=== PATIENT | female | born 1975 | race Caucasian/White ===

== ENCOUNTER 2016-03-19 16:39 | Emergency (ER) | payer MEDICAID ==
[~2016-03-19] VITALS: Ht 154.9 cm; Wt 77.5 kg
[2016-03-19 17:03] VITALS: Ht 154.9 cm; Wt 77.5 kg
[2016-03-19 20:12] LABS: ADD UMIC YES; URINE BILIRUBIN (Dip) NEGATIVE (NEGATIVE); URINE BLOOD (Dip) 3+ (NEGATIVE); URINE COLOR RED (YELLOW); URINE GLUCOSE (Dip) NEGATIVE (NEGATIVE); URINE KETONES (Dip) NEGATIVE (NEGATIVE); URINE LEUKOCYTE ESTERASE (Dip) TRACE (NEGATIVE); URINE NITRITE (Dip) NEGATIVE (NEGATIVE); URINE TOTAL PROTEIN (Dip) 1+ (NEGATIVE); URINE UROBILINOGEN (Dip) 0.2 E.U./dL (0.1-1.0)
[2016-03-19 20:14] LABS: BASOPHILS % 0.4 % (0.0-2.0); EOSINOPHILS # 0.4 10^3/ul (0.0-0.5); EOSINOPHILS % 3.7 % (0.0-7.0); HEMOGLOBIN 8.9 g/dl (12.0-16.0); LYMPHOCYTES # 3.8 10^3/ul (0.8-2.9); LYMPHOCYTES % 35.6 % (15.0-51.0); MEAN CORPUSCULAR HEMOGLOBIN 23.4 pg (29.0-33.0); MEAN CORPUSCULAR HGB CONC 31.9 g/dl (32.0-37.0); MEAN CORPUSCULAR VOLUME 73.5 fl (82.0-101.0); MEAN PLATELET VOLUME 7.4 fl (7.4-10.4); MONOCYTE # 0.6 10^3/ul (0.3-0.9); MONOCYTES % 5.6 % (0.0-11.0); NEUTROPHIL # 5.8 10^3/ul (1.6-7.5); NEUTROPHILS % 54.7 % (39.0-77.0); PLATELET COUNT 395 10^3/UL (140-440); RED BLOOD COUNT 3.81 10^6/ul (4.20-5.40); RED CELL DISTRIBUTION WIDTH 18.7 % (11.5-14.5); UNCORRECTED WBC 10.7 10^3/ul (4.8-10.8); WHITE BLOOD COUNT 10.7 10^3/ul (4.8-10.8)
[2016-03-19 20:18] LABS: CONDITION 1; LH ANALYZER COMMENTS 1
[2016-03-19 20:25] LABS: CREATININE 0.75 mg/dl (0.44-1.00)
[2016-03-19 20:26] LABS: CALCIUM 9.2 mg/dl (8.4-10.2)
[2016-03-19 21:25] LABS: URINE RBCS >200 /HPF (0)
[2016-03-19 21:28] LABS: BACTERIA,URINE MODERATE; MUCUS,URINE MODERATE
[2016-03-19 21:29] LABS: SQUAMOUS EPITHELIAL CELL,UR FEW
--- NOTE | 2016-03-19 22:23 | RADRPT ---
PROCEDURE: US Pelvis. CLINICAL INDICATION: Vaginal hemorrhage. TECHNIQUE: Multiple sonographic images of the pelvis were obtained utilizing a transabdominal and endovaginal technique. The images were reviewed on a PACS workstation. COMPARISON: None. FINDINGS: The uterus is visualized and measures 104 x 98 x 72 mm. Small posterior uterine fibroid measures 15 mm. The endometrial echo complex is normal and measures 20 mm. Nabothian cysts at the cervix. There is no evidence for free fluid. The right ovary has a 4 cm cyst . Otherwise, the right ovary has a normal echotexture and measures 45 x 40 x 36 mm . The left ovar y has a normal echotexture and measures 24 x 15 x 21 mm. No flow detected in the left ovary, perhaps secondary to small size. No adnexal masses are noted. IMPRESSION: 1. Thickened endometrium, and consider tissue diagnosis. 2. 4 cm right ovarian cyst. 3. No evident ovarian torsion on the right. 4. Small left ovary, without identified blood flow, otherwise nonspecific. RPTAT: UU Physician Yovani Date Time Electronically viewed and signed by Physician Yovani on 03/19/2016 22:23 RS/
--- NOTE | 2016-03-19 22:29 | ERD ---
ER Documentation Chief Complaint Date/Time DATE: 03/19/16 TIME: 22:28 Chief Complaint VAGINAL BLEEDING WITH CLOTS ROS All systems reviewed and are negative except as per history of present illness. Allergies Allergies: Coded Allergies: No Known Drug Allergy (Verified Allergy, Mild, 03/19/16) PMhx/Soc History of Surgery: No Hx Neurological Disorder: No Hx Respiratory Disorders: No Hx Cardiac Disorders: No Hx Psychiatric Problems: No Hx Miscellaneous Medical Probl: No Hx Alcohol Use: No Hx Substance Use: No Hx Tobacco Use: No Smoking Status: Unknown if ever smoked Physical Exam Vitals Vital Signs Date Time Temp Pulse Resp B/P Pulse Ox O2 Delivery O2 Flow Rate FiO2 03/19/16 17:03 98.1 92 19 128/73 100 Physical Exam Const: [] Head: Atraumatic Eyes: Normal Conjunctiva ENT: Normal External Ears, Nose and Mouth. Neck: Full range of motion..~ No meningismus. Resp: Clear to auscultation bilaterally Cardio: Regular rate and rhythm, no murmurs Abd: Soft, non tender, non distended. Normal bowel sounds Skin: No petechiae or rashes Back: No midline or flank tenderness Ext: No cyanosis, or edema Neur: Awake and alert Psych: Normal Mood and Affect Result Diagram: 03/19/16194303/19/161943 Results 24 hrs Laboratory Tests Test 03/19/16 19:44 Anion Gap 14 Basophils # 0.010^3/ul Basophils % 0.4% Blood Morphology Comment Blood Urea Nitrogen 7mg/dl Calcium Level 9.2mg/dl Carbon Dioxide Level 28mmol/L Chloride Level 104mmol/L Creatinine 0.75mg/dl Eosinophils # 0.410^3/ul Eosinophils % 3.7% Glucose Level 91mg/dl Hematocrit 28.0% Hemoglobin 8.9g/dl Lymphocytes # 3.810^3/ul Lymphocytes % 35.6% Mean Corpuscular Hemoglobin 23.4pg Mean Corpuscular Hemoglobin Concent 31.9g/dl Mean Corpuscular Volume 73.5fl Mean Platelet Volume 7.4fl Monocytes # 0.610^3/ul Monocytes % 5.6% Neutrophils # 5.810^3/ul Neutrophils % 54.7% Nucleated Red Blood Cells # 0.010^3/ul Nucleated Red Blood Cells % 0.0/100WBC Platelet Count 45358^3/UL Potassium Level 4.0mmol/L Red Blood Count 3.8110^6/ul Red Cell Distribution Width 18.7% Sodium Level 142mmol/L Urine Bacteria MODERATE Urine Bilirubin NEGATIVE Urine Clarity CLEAR Urine Color RED Urine Glucose NEGATIVE% Urine Hemoglobin 3+ Urine Ketones NEGATIVE Urine Leukocyte Esterase TRACE Urine Microscopic RBC >200/HPF Urine Microscopic WBC 10-25/HPF Urine Mucus MODERATE Urine Nitrite NEGATIVE Urine Specific [place] >=1.030 Urine Squamous Epithelial Cells FEW Urine Total Protein 1+ Urine Urobilinogen 0.2 E.U./dL Urine pH 5.5 White Blood Count 10.710^3/ul Departure Diagnosis: Primary Impression: Vaginal bleeding Additional Impression: Iron deficiency anemia Condition: Stable ALBINO MAZARIEGOS PA-C Mar 19, 2016 22:29
[2016-03-19] MEDS ORDERED: FER325 PO (23:15)
[2016-03-19] MEDS ORDERED: DOCU-144 PO (23:16)
[2016-03-19 23:58] VITALS: PULSE 72; RESP 18; TEMP 98.4
== END 2016-03-19 23:52 | disposition home or self-care (01) ==
LOC: FTE 16:39
DX: N93.9 Abnormal uterine and vaginal bleeding, unspecified (principal); D50.9 Iron deficiency anemia, unspecified
CPT/HCPCS: 36415; 76830; 76856; 80048; 81001; 85025; Z7502; 81003

== ENCOUNTER 2016-04-04 19:43 | Emergency (ER) | payer MEDICAID ==
[~2016-04-04] VITALS: Ht 152.4 cm; Wt 78.0 kg
[~2016-04-04 19:43] MED LIST: DOCU-144 PO; FER325 PO
[2016-04-04 20:55] VITALS: Ht 152.4 cm; Wt 78.0 kg
[2016-04-04] MEDS ORDERED: SOD CHLORIDE 0.9% 1,000 ML IV STA (21:49)
--- NOTE | 2016-04-04 21:52 | ERD ---
ER Documentation Chief Complaint Date/Time DATE: 04/04/16 TIME: 21:51 Chief Complaint vaginal bleeding x 3 months, pelvic pain with nausea (AGUSTÍN LOPEZ NP) HPI 41-year-old female presents to emergency department for complaints of pelvic pain and vaginal bleeding for 3 months now. 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 Patient is complaining of pelvic pain, cramping pain, 4/10 scale, accompanying the other symptoms. Patient's pain is the same as last time. Denies any new type of pain. She denies hematuria or dysuria. Patient is complaining of nausea but denies any vomiting. She denies any dizziness. On and off palpitations. (AGUSTÍN LOPEZ NP) ROS All systems reviewed and are negative except as per history of present illness. (AGUSTÍN LOPEZ NP) Medications Home Meds Active Scripts Ferrous Sulfate* (Ferrous Sulfate*) 325 Mg Tabec, 325 MG PO TID, #60 TAB Prov:ALBINO MAZARIEGOS PA-C 03/19/16 Discontinued Scripts Docusate Sodium* (Colace*) 100 Mg Capsule, 100 MG PO qday, #30 CAP Prov:ALBINO MAZARIEGOS PA-C 03/19/16 Allergies Allergies: Coded Allergies: No Known Drug Allergy (Verified Allergy, Mild, 03/19/16) PMhx/Soc Medical and Surgical Hx: pt denies Medical Hx, pt denies Surgical Hx History of Surgery: No Hx Neurological Disorder: No Hx Respiratory Disorders: No Hx Cardiac Disorders: No Hx Psychiatric Problems: No Hx Miscellaneous Medical Probl: No Hx Alcohol Use: No Hx Substance Use: No Hx Tobacco Use: No (AGUSTÍN LOPEZ NP) FmHx Family History: No coronary disease, No diabetes, No other (AGUSTÍN LOPEZ NP) Physical Exam Vitals Vital Signs Date Time Temp Pulse Resp B/P Pulse Ox O2 Delivery O2 Flow Rate FiO2 04/05/16 10:30 86 18 115/63 100 Room Air 04/05/16 08:30 98.1 77 18 113/74 100 Room Air 04/05/16 06:30 87 18 103/72 99 Room Air 04/05/16 06:00 98.1 74 16 104/62 100 Room Air 04/05/16 04:00 98.4 81 14 106/64 99 Room Air 04/05/16 00:25 89 16 112/69 99 Room Air 04/04/16 20:55 98.3 110 20 132/71 100 (FARHAN WATSON DO) Physical Exam GENERAL: The patient is well developed and appropriate for usual state of health, in no apparent distress. Pale appearing. CHEST: Clear to auscultation bilaterally. There are no rales, wheezes or rhonchi. HEART: Regular rate and rhythm. No murmurs, clicks, rubs or gallops. No S3 or S4. ABDOMEN: Soft, nontender and nondistended. Good bowel sounds. No rebound or guarding. No gross peritonitis. No gross organomegaly or masses. No Rodriguez sign or McBurney point tenderness. BACK: No midline or flank tenderness. EXTREMITIES: Equal pulses bilaterally. There is no peripheral clubbing, cyanosis or edema. No focal swelling or erythema. Full range of motion. Grossly neurovascularly intact. NEURO: Alert and oriented. Cranial nerves 2-12 intact. Motor strength in all 4 extremities with 5/5 strength. Sensation grossly intact. Normal speech and gait. SKIN: There is no apparent rash or petechia. The skin is warm and dry. HEMATOLOGIC AND LYMPHATIC: There is no evidence of excessive bruising or lymphedema. No gross cervical, axillary, or inguinal lymphadenopathy. (AGUSTÍN LOPEZ NP) Result Diagram: 04/04/162223 Results 24 hrs Laboratory Tests Test 04/04/16 21:55 04/04/16 22:24 Urine Bacteria FEW Urine Bilirubin NEGATIVE Urine Clarity TURBID Urine Color RED Urine Epithelial Cells FEW Urine Glucose NEGATIVE% Urine Hemoglobin 3+ Urine Ketones NEGATIVE Urine Leukocyte Esterase NEGATIVE Urine Microscopic RBC >200/HPF Urine Microscopic WBC 2-5/HPF Urine Nitrite NEGATIVE Urine Specific [place] 1.020 Urine Total Protein 2+ Urine Urobilinogen 0.2 E.U./dL Urine pH 6.5 Basophils # 0.010^3/ul Basophils % 0.5% Beta HCG, Quantitative < 2.4mIU/ml Blood Morphology Comment Eosinophils # 0.310^3/ul Eosinophils % 4.5% Hematocrit 21.4% Hemoglobin 6.9g/dl Lymphocytes # 3.010^3/ul Lymphocytes % 41.9% Mean Corpuscular Hemoglobin 27.0pg Mean Corpuscular Hemoglobin Concent 32.1g/dl Mean Corpuscular Volume 84.0fl Mean Platelet Volume 7.7fl Monocytes # 0.610^3/ul Monocytes % 8.1% Neutrophils # 3.310^3/ul Neutrophils % 45.0% Nucleated Red Blood Cells # 0.010^3/ul Nucleated Red Blood Cells % 0.0/100WBC Platelet Count 46896^3/UL Red Blood Count 2.5510^6/ul Red Cell Distribution Width 28.6% White Blood Count 7.310^3/ul Current Medications Medications (Trade) Dose Ordered Sig/Felipe Route PRN Reason Start Time Stop Time Status Last Admin Dose Admin Sodium Chloride (NS) 1,000 ml @ 1,000 mls/hr Q1H STAT IV 04/04/16 21:49 04/04/16 22:48 DC 04/04/16 22:20 Medroxyprogesterone Acetate (Depo-Provera) 150 mg ONCE ONCE IM 04/05/16 08:30 04/05/16 08:31 DC Estrogens Conjugated (Premarin) 25 mg ONCE ONCE IM 04/05/16 08:30 04/05/16 08:31 DC 04/05/16 09:35 Medroxyprogesterone Acetate (Depo-Provera) 150 mg ONCE IM 04/05/16 08:30 04/05/16 08:31 DC 04/05/16 10:49 Medroxyprogesterone Acetate (Depo-Provera) 150 mg ONCE IM 04/05/16 09:00 04/05/16 09:01 DC (FARHAN WATSON DO) Results 24 hrs Normal saline IV bolus was given here in emergency department for rehydration, patient tolerated IV fluids. PROCEDURE: US Pelvis. CLINICAL INDICATION: Vaginal hemorrhage. TECHNIQUE: Multiple sonographic images of the pelvis were obtained utilizing a transabdominal and endovaginal technique. The images were reviewed on a PACS workstation. COMPARISON: None. FINDINGS: The uterus is visualized and measures 104 x 98 x 72 mm. Small posterior uterine fibroid measures 15 mm. The endometrial echo complex is normal and measures 20 mm. Nabothian cysts at the cervix. There is no evidence for free fluid. The right ovary has a 4 cm cyst. Otherwise, the right ovary has a normal echotexture and measures 45 x 40 x 36 mm . The left ovary has a normal echotexture and measures 24 x 15 x 21 mm. No flow detected in the left ovary, perhaps secondary to small size. No adnexal masses are noted. IMPRESSION: 1. Thickened endometrium, and consider tissue diagnosis. 2. 4 cm right ovarian cyst. 3. No evident ovarian torsion on the right. 4. Small left ovary, without identified blood flow, otherwise nonspecific. RPTAT: UU Physician Yovani Date Time Electronically viewed and signed by Physician Yovani on 03/19/2016 22:23 RS/ CC: ALBINO MAZARIEGOS PA-C Review patient's previous ultrasound, repeat ultrasound at this time is not indicated since patient's pain is the same as last time, patient had a very low hemoglobin and hematocrit, I spoke to my attending physician, Dr. Campbell, patient has symptomatic anemia, possibly needing blood transfusion, he will take over care of, patient will patient's for to ER 1 for further treatment. (AGUSTÍN LOPEZ NP) Procedures/MDM Patient was seen by FAMILY AND CONSUMER SCIENCE PROFESSOR Dr. merlos, and he evaluated the patient and told me to discharge the patient home on control pills as she is stable for discharge (FARHAN WATSON DO) Departure Diagnosis: Primary Impression: Vaginal bleeding Additional Impression: Anemia Anemia type: iron deficiency Iron deficiency anemia type: chronic blood loss Qualified Code: D50.0 - Iron deficiency anemia due to chronic blood loss Condition: Stable AGUSTÍN LOPEZ NP Apr 04, 2016 21:52 FARHAN WATSON DO Apr 05, 2016 12:18
[2016-04-04 22:16] LABS: ADD UMIC YES; URINE BILIRUBIN (Dip) NEGATIVE (NEGATIVE); URINE BLOOD (Dip) 3+ (NEGATIVE); URINE COLOR RED (YELLOW); URINE GLUCOSE (Dip) NEGATIVE (NEGATIVE); URINE KETONES (Dip) NEGATIVE (NEGATIVE); URINE LEUKOCYTE ESTERASE (Dip) NEGATIVE (NEGATIVE); URINE NITRITE (Dip) NEGATIVE (NEGATIVE); URINE TOTAL PROTEIN (Dip) 2+ (NEGATIVE); URINE UROBILINOGEN (Dip) 0.2 E.U./dL (0.1-1.0)
[2016-04-04 22:23] LABS: BACTERIA,URINE FEW; URINE RBCS >200 /HPF (0)
[2016-04-04 23:13] LABS: BASOPHILS % 0.5 % (0.0-2.0); EOSINOPHILS # 0.3 10^3/ul (0.0-0.5); EOSINOPHILS % 4.5 % (0.0-7.0); HEMATOCRIT 21.4 % (37.0-47.0); LYMPHOCYTES % 41.9 % (15.0-51.0); MEAN CORPUSCULAR HGB CONC 32.1 g/dl (32.0-37.0); MEAN PLATELET VOLUME 7.7 fl (7.4-10.4); MONOCYTE # 0.6 10^3/ul (0.3-0.9); MONOCYTES % 8.1 % (0.0-11.0); NEUTROPHIL # 3.3 10^3/ul (1.6-7.5); PLATELET COUNT 279 10^3/UL (140-440); RED BLOOD COUNT 2.55 10^6/ul (4.20-5.40); RED CELL DISTRIBUTION WIDTH 28.6 % (11.5-14.5); UNCORRECTED WBC 7.3 10^3/ul (4.8-10.8); WHITE BLOOD COUNT 7.3 10^3/ul (4.8-10.8)
[2016-04-04 23:28] LABS: CONDITION 1; LH ANALYZER COMMENTS 1; SUSPECT 1
[2016-04-04 23:33] LABS: HEMOGLOBIN 6.9 g/dl (12.0-16.0)
--- NOTE | 2016-04-05 05:03 | HP ---
Date/Time of Note Date/Time of Note DATE: 04/05/16 TIME: 04:54 Assessment/Plan VTE Prophylaxis VTE Prophylaxis Intervention: SCD's Assessment/Plan Assessment/Plan 41 yo F with 1. Severe anemia 2/2 #2 2. Intractable Vaginal bleeding, failed OCP therapy 3. 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 Patient 's pain is the same as last time. Denies any new type of pain. She denies hematuria or dysuria. Patient is complaining of nausea but denies any vomiting. She denies any dizziness. On and off palpitations. Found to be severely anemic in ER. ROS 12 point review if systems was done and pertinent findings are as noted. PMH/Family/Social Past Medical History vaginal bleeding uterine fibroid Past Surgical History * tubal ligation Family History Significant Family History: no pertinent family hx Social History Alcohol Use: none Smoking Status: Never smoker Drug Use: none Exam/Review of Systems Vital Signs Vitals Vital Signs Date Time Temp Pulse Resp B/P Pulse Ox O2 Delivery O2 Flow Rate FiO2 04/05/16 04:00 98.4 81 14 106/64 99 Room Air Exam Constitutional: alert, oriented Head: atraumatic, normocephalic ENMT: mucosa pink and moist Respiratory: clear to auscultation Cardiovascular: regular rate and rhythm Gastrointestinal: non-tender, soft Extremities: No edema Neurological: nl mental status Labs Result Diagram: 04/04/16 2224 Procedures Procedures Laboratory Tests Test 04/04/16 21:55 04/04/16 22:24 Urine Bacteria FEW Urine Bilirubin NEGATIVE Urine Clarity TURBID Urine Color RED Urine Epithelial Cells FEW Urine Glucose NEGATIVE% Urine Hemoglobin 3+ Urine Ketones NEGATIVE Urine Leukocyte Esterase NEGATIVE Urine Microscopic RBC >200/HPF Urine Microscopic WBC 2-5/HPF Urine Nitrite NEGATIVE Urine Specific [place] 1.020 Urine Total Protein 2+ Urine Urobilinogen 0.2 E.U./dL Urine pH 6.5 Basophils # 0.010^3/ul Basophils % 0.5% Beta HCG, Quantitative < 2.4mIU/ml Blood Morphology Comment Eosinophils # 0.310^3/ul Eosinophils % 4.5% Hematocrit 21.4% Hemoglobin 6.9g/dl Lymphocytes # 3.010^3/ul Lymphocytes % 41.9% Mean Corpuscular Hemoglobin 27.0pg Mean Corpuscular Hemoglobin Concent 32.1g/dl Mean Corpuscular Volume 84.0fl Mean Platelet Volume 7.7fl Monocytes # 0.610^3/ul Monocytes % 8.1% Neutrophils # 3.310^3/ul Neutrophils % 45.0% Nucleated Red Blood Cells # 0.010^3/ul Nucleated Red Blood Cells % 0.0/100WBC Platelet Count 57153^3/UL Red Blood Count 2.5510^6/ul Red Cell Distribution Width 28.6% White Blood Count 7.310^3/ul Current Medications Medications (Trade) Dose Ordered Sig/Felipe Route PRN Reason Start Time Stop Time Status Last Admin Dose Admin Sodium Chloride (NS) 1,000 ml @ 1,000 mls/hr Q1H STAT IV 04/04/16 21:49 04/04/16 22:48 DC 04/04/16 22:20 1,000 MLS/HR PROCEDURE: US Pelvis. CLINICAL INDICATION: Vaginal hemorrhage. TECHNIQUE: Multiple sonographic images of the pelvis were obtained utilizing a transabdominal and endovaginal technique. The images were reviewed on a PACS workstation. COMPARISON: None. FINDINGS: The uterus is visualized and measures 104 x 98 x 72 mm. Small posterior uterine fibroid measures 15 mm. The endometrial echo complex is normal and measures 20 mm. Nabothian cysts at the cervix. There is no evidence for free fluid. The right ovary has a 4 cm cyst. Otherwise, the right ovary has a normal echotexture and measures 45 x 40 x 36 mm . The left ovary has a normal echotexture and measures 24 x 15 x 21 mm. No flow detected in the left ovary, perhaps secondary to small size. No adnexal masses are noted. IMPRESSION: 1. Thickened endometrium, and consider tissue diagnosis. 2. 4 cm right ovarian cyst. 3. No evident ovarian torsion on the right. 4. Small left ovary, without identified blood flow, otherwise nonspecific. RPTAT: UU Physician Yovani Date Time Electronically viewed and signed by Ling Thomson Physician on 03/19/2016 22:23 JOAQUÍN/ DARRICK ALBRECHT Apr 05, 2016 05:03
--- NOTE | 2016-04-05 07:25 | RADRPT ---
PROCEDURE: US Pelvis. CLINICAL INDICATION: Vaginal bleeding TECHNIQUE: Sonographic evaluation of the pelvis was performed utilizing transabdominal technique o nly. Curved array transabdominal transducer was utilized. Images were reviewed on the [employer] on PACS workstation. COMPARISON: Ultrasound, 03/19/2016 FINDINGS: The uterus is normal in size, echogenicity, and morphology measuring 11.8 x 5.9 x 6.4 cm in dimensio n. The uterus is anteverted in normal position. The endometrium measures 9.8 mm in diameter. The normal trilaminar stripe of the endometrium is preserved. The right ovary measures 3.8 x 2.9 x 3.5 cm in dimension, and demonstrates a 3.3 cm cyst - previousl y this measured 3.8 cm. The left ovary measures 2.6 x 1.4 x 1.6 cm in dimension. No ovarian torsio n, adnexal mass or pelvic free fluid is identified. IMPRESSION: 1. 3.3 cm right ovarian cyst, mildly decreased in size when compared to the prior ultrasound. 2. Otherwise unremarkable ultrasound exam. RPTAT: QQ .Bladimir Manzanares MD, Date Time Electronically viewed and signed by .Bladimir Manzanares MD, on 04/05/2016 07:24 .R/
[2016-04-05 08:30] VITALS: TEMP 98.1
[2016-04-05] MEDS ORDERED: ESTROGENS CONJUGATED 25 MG INJ IM ONE (08:30)
[2016-04-05] MEDS ORDERED: MEDROXYPROGEST ACET 400 MG/ML VIAL IM SCH ×2 (08:30→09:00)
[2016-04-05] MEDS ORDERED: MEDROXYPROGESTERONE 150 MG INJ SYG IM ONE (08:30)
--- NOTE | 2016-04-05 11:20 | CONS ---
DATE OF ADMISSION: 04/04/2016 DATE OF CONSULTATION: Dear Dr. Campbell: Thank you very much for allowing me to participate in the care of your patient. HISTORY OF PRESENT ILLNESS: As you know, she is a pleasant 41-year-old, 5, para 5-0-0-5, wh o presented to the emergency department with complaint of severe vaginal bleeding. She states her p eriod was regular until 4 months ago. Then, she started to have vaginal bleeding with clots passing for 3 months. Her periods stopped after receiving Provera for 10 days. After discontinuing the Pr overa, she started to have heavy vaginal bleeding with clots passing. PAST MEDICAL HISTORY: None. PAST SURGICAL HISTORY: None. OBSTETRIC HISTORY: 5, para 5-0-0-5 with 5 normal vaginal deliveries. FAMILY HISTORY: Negative. She denies breast, ovarian, uterine, and colon cancer in her family. SOCIAL HISTORY: She is not . She denies tobacco, alcohol or drug use. ALLERGIES: NO KNOWN DRUG ALLERGIES. HOME MEDICATIONS: None. PHYSICAL EXAMINATION: VITAL SIGNS: Blood pressure 110/67, pulse rate 86/minute, respiratory rate 18/minute, temperature 9 8.1. GENERAL: Comfortable. She looks pale. She is in no acute distress, appropriate mood and affect. HEART: Regular rhythm and rate. No murmur. LUNGS: Clear to auscultation bilateral. ABDOMEN: Soft, nontender, no rebound or guarding. FLANKS: No CVA tenderness bilateral. EXTREMITIES: No edema, thigh or calf tenderness bilateral. PELVIC EXAMINATION: External genitalia within normal limits. Vagina with a large amount of blood a nd minimal clots. The cervix was multiparous without lesion. The uterus 10 weeks, mobile, nontende r. Adnexa no palpable masses bilaterally. IMAGING: A pelvic ultrasound revealed the uterus is normal in size, echogenicity and morphology, me asuring 11.8 x 5.9 x 6.4 cm. The uterus is anteverted and normal position. The endometrium measure d 9.8 mm in diameter. A normal trilaminar stripe of endometrium is present. The right ovary measure s 3.8 x 2.9 x 3.5 cm in dimension and demonstrates a 3.3 cm cyst. Previously, this measured 3.8 cm. The left ovary measures 2.6 x 1.4 x 1.6 cm in dimension. No ovarian torsion, adnexal masses or pe lvic free fluid is identified. LABORATORIES: CBC: White BC 7.3, RBC 2.5, hemoglobin 6.9, hematocrit 21.4, MCV 84, MCH 27, MCHC 32 , RDW 28.6, platelet 279. Blood type O positive. ASSESSMENT AND PLAN: This is a 41 years old, 5, para 5-0-0-5 with abnormal uterine bleeding (menometrorrhagia) and severe secondary anemia. The patient was admitted under care of the hospita list. One unit of packed RBC ordered. Evaluation and treatment options for abnormal uterine bleedi ng discussed in detail with the patient. She expressed understanding, all of her questions answered . She would like to try medroxyprogesterone acetate, which ordered. I strongly recommend follow up at [facility]. She voiced understanding. She will have a followup by hospitalist and ___ __. Dictated By: LEAH SHARMA/CHON Conf#: [id number] DID#: [id number]
[2016-04-05 12:00] VITALS: BP 106/73; PULSE 96; RESP 18
[2016-04-05] MEDS ORDERED: NORG1TAB14 PO (12:21)
--- NOTE | 2016-04-05 13:33 | QN ---
Documentation Comment The patient was waiting in the ER for medical surgical bed because of shortage of medical surgical beds. Meanwhile, UTILIZATION MANAGEMENT NURSE evaluated the patient in the ER and and cleared the patient for discharge. ER physician discharged the patient directly from the ER on medroxyprogesterone to be followed up with outpatient UTILIZATION MANAGEMENT NURSE. During the course of the ER stay, the patient received 2 units of PRBC. The patient was discharged directly from the ER before seen by the primary team. Prescription was given by the ER physician. Case discussed with Dr. Andrade. MODE CERDA NP Apr 05, 2016 13:33
--- NOTE | 2016-04-05 15:31 | PN ---
Date/Time of Note Date/Time of Note DATE: 04/05/16 TIME: 15:11 OB Subjective Subjective Subjective April 05, 2016 My consult note This patient is a 41 years old 5 para 5 who came to emergency room complaining of the vaginal bleeding off-and-on for 2 month. All of her deliveries were vaginal . she had a tubal ligation with her last delivery 5 years ago. her past history there is no other significant medical matter she states that she has irregular spotting occasionally vaginal bleeding. she was seen in this emergency room 8 month ago for the same complain ' On physical examination she is a well-developed well-nourished lady her vital signs blood pressure respiration and pulse are within normal limits Her chest is clear to auscultation and percussion heart normal sinus rhythm no murmur. breasts are soft free of masses abdomen is soft no tenderness no organomegaly no CVA tenderness extremity normal no edema no varicosities knee-jerk reflex . On pelvic examination she does have a slight bleeding , vulva and vagina appears to be normal. the uterus is normal size no adnexal mass palpated . Her ultrasound report showed a normal-sized uterus right ovary was 3.8 x 2.9 x 3.5 cm x 3.3 cm which previously was 3.8 cm about 4 weeks ago . no other abnormal finding. her beta-hCG were basically negative her blood counts shows that she had anemia with a hemoglobin of 6.9 hematocrit of 21.4 Impression: dysfunctional uterine bleeding disposition oral contraception Laboratory Tests Test 04/04/16 21:55 04/04/16 22:24 Urine Bacteria FEW Urine Bilirubin NEGATIVE Urine Clarity TURBID Urine Color RED Urine Epithelial Cells FEW Urine Glucose NEGATIVE% Urine Hemoglobin 3+ Urine Ketones NEGATIVE Urine Leukocyte Esterase NEGATIVE Urine Microscopic RBC >200/HPF Urine Microscopic WBC 2-5/HPF Urine Nitrite NEGATIVE Urine Specific [place] 1.020 Urine Total Protein 2+ Urine Urobilinogen 0.2 E.U./dL Urine pH 6.5 Basophils # 0.010^3/ul Basophils % 0.5% Beta HCG, Quantitative < 2.4mIU/ml Blood Morphology Comment Eosinophils # 0.310^3/ul Eosinophils % 4.5% Hematocrit 21.4% Hemoglobin 6.9g/dl Lymphocytes # 3.010^3/ul Lymphocytes % 41.9% Mean Corpuscular Hemoglobin 27.0pg Mean Corpuscular Hemoglobin Concent 32.1g/dl Mean Corpuscular Volume 84.0fl Mean Platelet Volume 7.7fl Monocytes # 0.610^3/ul Monocytes % 8.1% Neutrophils # 3.310^3/ul Neutrophils % 45.0% Nucleated Red Blood Cells # 0.010^3/ul Nucleated Red Blood Cells % 0.0/100WBC Platelet Count 76551^3/UL Red Blood Count 2.5510^6/ul Red Cell Distribution Width 28.6% White Blood Count 7.310^3/ul Current Medications Medications (Trade) Dose Ordered Sig/Felipe Route PRN Reason Start Time Stop Time Status Last Admin Dose Admin Sodium Chloride (NS) 1,000 ml @ 1,000 mls/hr Q1H STAT IV 04/04/16 21:49 04/04/16 22:48 DC 04/04/16 22:20 Medroxyprogesterone Acetate (Depo-Provera) 150 mg ONCE ONCE IM 04/05/16 08:30 04/05/16 08:31 DC Estrogens Conjugated (Premarin) 25 mg ONCE ONCE IM 04/05/16 08:30 04/05/16 08:31 DC 04/05/16 09:35 Medroxyprogesterone Acetate (Depo-Provera) 150 mg ONCE IM 04/05/16 08:30 04/05/16 08:31 DC 04/05/16 10:49 Medroxyprogesterone Acetate (Depo-Provera) 150 mg ONCE IM 04/05/16 09:00 04/05/16 09:01 DC was given to the patient she also was supposed to start taking iron pills twice a day and to do a follow-up with her on [facility] TANK MARTINEZ MD Apr 05, 2016 15:31
== END 2016-04-05 12:40 | disposition home or self-care (01) ==
LOC: FTE 19:43 → E/R 04-05 12:40
DX: N93.9 Abnormal uterine and vaginal bleeding, unspecified (principal); R40.2252 Coma scale, best verbal response, oriented, at arrival to emergency department; D50.0 Iron deficiency anemia secondary to blood loss (chronic); R40.2362 Coma scale, best motor response, obeys commands, at arrival to emergency department; R40.2142 Coma scale, eyes open, spontaneous, at arrival to emergency department
CPT/HCPCS: 36415; 36430; 76856; 81001; 84702; 85025; 86850; 86900; 86901; 86920; 96372; J1410; J7030; P9016; Z7502; Z7610; 81003